=== PATIENT | female | born 1980 | race Hispanic/Latino ===

== ENCOUNTER → 2019-06-19 | Day surgery (SDC) | payer OTHER ==
[~2019-06-19] MED LIST: FENTANYL CITRATE/PF 100MCG/2 ML INJ ONE; GLUCAGON FOR INJ 1 MG VIAL ONE; LIDOCAINE HCL 2% LOCAL INJ 5 ML SDV VIAL INJ ONE; METOCLOPRAMIDE HCL 10 MG/2ML VIAL ONE; MIDAZOLAM HCL 2 MG/2 ML VIAL ONE; PROPOFOL IV EMULSION 10 MG/ML 20 ML VIAL ONE; SIMETHICONE 40 MG/0.6 ML BTL ONE
[2019-06-19 09:40] VITALS: BP 123/74
--- NOTE | 2019-06-19 12:50 | Operative Report ---
DATE OF PROCEDURE: 06/19/2019 SURGEON: Burke Luna MD PROCEDURE: EGD with esophageal dilatation and biopsies, and colonoscopy with polypectomy and biopsies. INDICATIONS FOR EGD: Dysphagia, upper abdominal pain, nausea. INDICATIONS FOR COLONOSCOPY: Lower abdominal pain, rectal spasms. MEDICATIONS: The patient was done under MAC, please see anesthesiologist's note. PROCEDURE IN DETAIL: With the patient in left lateral decubitus position, a flexible fiberoptic Olympus gastroscope was introduced into the esophagus under direct visualization without any difficulty. There was some patchy erythema noted in distal esophagus. A mild stricture at the GE junction was dilated to size 54-[place] Blake. The scope was then advanced with ease into the stomach. Mucosa overlying the antrum and the body revealed some patchy erythema and low-grade to moderate edema, and biopsies were obtained, sent to stain for H pylori. The pylorus was of normal contour and shape, was intubated with ease and the scope was advanced all the way to the second portion of the duodenum. Biopsies were obtained from the proximal second portion and duodenal bulb to rule out sprue. The scope was then withdrawn back into the stomach and retroflexion of mucosa overlying the fundus and cardia appeared to be within normal limits. The scope was then straightened out, it was subsequently withdrawn. The patient tolerated the procedure well. IMPRESSION: 1. Distal esophagitis, mild. 2. Esophageal stricture GE junction, dilated to size 54-[place] Blake. 3. Gastritis biopsied, biopsies sent to stain for H pylori. 4. Rule out sprue. PLAN: Follow up histology. Initiate Protonix 40 mg one p.o. q.a.m. a.c. The patient was then turned around after adequate lubrication of the anal canal, a flexible fiberoptic Olympus colonoscope was inserted into the rectum with ease and advanced all the way to the cecum. The mucosa overlying the cecum appeared to be within normal limits. There was a minute nodule noted in the ileocecal valve and that was biopsied. The terminal ileum was intubated. The mucosa overlying the visualized portion of the terminal ileum appeared to be within normal limits. The scope was then withdrawn back into the colon. It was then withdrawn slowly. A minute polyp was removed per hot biopsy forceps from the ascending colon. The transverse appeared to be within normal limits. Biopsies were obtained from the left colon. A minute polyp was hot biopsied in the sigmoid colon. There were some mild inflammatory changes noted in the rectum and biopsies were obtained. The scope was then retroflexed into the distal rectum. Small internal hemorrhoids were noted, none of which was actively bleeding. The scope was then straightened out, it was subsequently withdrawn. The patient tolerated the procedure well. IMPRESSION: 1. Minute nodule ileocecal valve, biopsied. 2. Ascending colon polyp, hot biopsied. 3. Sigmoid colon polyp, hot biopsied. 4. Proctitis, mild, biopsies obtained. 5. Internal hemorrhoids, none actively bleeding. PLAN: Followup histology. Initiate VSL #3 one p.o. b.i.d. Bentyl 20 mg one p.o. t.i.d. The patient might benefit from a followup colonoscopy in 5 years. Burke Luna MD [facility] [place] /[id number] cc: Enrique Trevizo DO
== END | disposition home or self-care (01) ==
LOC: OR 05:49
PROVIDERS: ATTEND Internal Medicine Gastroenterology
DX: K29.70 Gastritis, unspecified, without bleeding (principal); K63.5 Polyp of colon; K22.2 Esophageal obstruction; K20.9 Esophagitis, unspecified; K63.89 Other specified diseases of intestine; K62.89 Other specified diseases of anus and rectum; K59.4 Anal spasm; K64.4 Residual hemorrhoidal skin tags; K64.8 Other hemorrhoids; N20.0 Calculus of kidney; Z01.812 Encounter for preprocedural laboratory examination; Z11.59 Encounter for screening for other viral diseases; Z68.41 Body mass index [BMI] 40.0-44.9, adult
CPT/HCPCS: 43239; 43450; 45380; 45384; 81025; 87635; J1610; J2001; J2250; J2704; J2765; J3010; 45378

== ENCOUNTER → 2019-10-17 | Day surgery (SDC) | payer OTHER ==
[~2019-10-17] MED LIST changes: +BENTYL10 MG/1 ML PO; +CEFTRIAXONE SOD 1 GM/NS 50 ML 50 ML IV ONE; +DEXAMETHASONE SOD PHOS INJ 4 MG/ML VIAL ONE; -GLUCAGON FOR INJ 1 MG VIAL ONE; +IOPAMIDOL 300MG/ML 50ML INFUS..BTL IV ONE; -METOCLOPRAMIDE HCL 10 MG/2ML VIAL ONE; +ONDANSETRON HCL INJ 2MG/ML 2ML 2 MG/ML VIAL ONE; +PANTOPRAZOLE SO40 MG PO; +SEVOFLURANE INHAL SOLN 250 ML PEN BTL ONE; -SIMETHICONE 40 MG/0.6 ML BTL ONE; +VSL#3 CAPSULE1 EACH PO
[2019-10-17 07:50] VITALS: BP_DIAS 80
[2019-10-17 07:55] VITALS: BP_SYST 114
--- NOTE | 2019-10-20 21:12 | Operative Report ---
DATE OF PROCEDURE: 10/17/2019 SURGEON: Aki Felix MD PREOPERATIVE DIAGNOSES: Left ureteral calculi, left hydronephrosis, microscopic hematuria. POSTOPERATIVE DIAGNOSES: Left ureteral calculi, left hydronephrosis, microscopic hematuria with urethral strictures. PROCEDURES: 1. Cystourethroscopy with right ureter catheterization and right retrograde pyelogram (separate procedure for microscopic hematuria). 2. Left-sided ureteroscopy with dilation of ureteral stricture (entirely separate procedure for left ureteral stricture). 3. Cystourethroscopy with insertion of left indwelling stent (entirely separate procedure for diagnosis of left hydronephrosis). 4. Supervision of fluoroscopy for both ureteroscopy, dilation portions and stent placement. 5. Interpretation of retrograde pyelography. ANESTHESIA: General. ESTIMATED BLOOD LOSS: Minimal. COMPLICATIONS: None. INDICATIONS: Ms. Meza is a very pleasant 39-year-old female with a history of ureteral calculi, proximal hydronephrosis. She and I had a long discussion alternatives, risks, and benefits including nothing, shockwave lithotripsy, ureteroscopy, percutaneous surgery, or open surgery. She voiced understanding of the options, alternatives, risks, and benefits, and she elected to proceed. PROCEDURE IN DETAIL: After informed consent was obtained, the patient was taken to operative suite, placed supine on the operating table, and underwent general anesthesia by Anesthesia Service, placed in the dorsal lithotomy position. Sterilely prepped and draped in standard fashion for cystoscopy. A 21-Yakut cystoscope was inserted per urethra. Bilateral retrograde pyelogram was performed; the right was normal, the left revealed a proximal area of narrowing, proximal hydronephrosis, question UPJ. With moderate degree of difficulty requiring an angle-tipped Glidewire, access was made in the proximal ureter calyx. Attempts were made to dilate this is fail. Flexible ureteroscope was advanced to this, best seen photographic image #4 showing a very small stricture. At this time, utilizing a stent, we attempted to soft dilate urethral stricture. A 7 x 28 cm ureteral stent was deployed with a coil in the renal pelvis and a coil in the bladder. The patient's bladder was drained. She was awakened from anesthesia and transferred to the recovery room in excellent condition. Supervision of fluoroscopy and interpretation of retrograde pyelography: I was present for the entire procedure and supervised fluoroscopy. There was no radiologist present. Attention was turned to the left and right ureteral orifices, which were catheterized with an 8-Yakut cone-tipped catheter and retrograde fashion. Contrast was injected on the right side revealed delicate ureter and delicate pelvocaliceal systems; on the left side revealed a delicate distal ureter, question extrinsic compression versus filling defect in the UPJ on the left side, proximal hydronephrosis. Postoperative views on the left side revealed stents in adequate position. IMPRESSION: 1. Normal right retrograde pyelogram. 2. Left hydronephrosis, question left UPJ. 3. Left ureteral stent in adequate position. MD PANCHO Mendez/MODL /[id number] cc: Enrique Trevizo DO
== END | disposition home or self-care (01) ==
LOC: OR 05:17
PROVIDERS: ATTEND Urology
DX: N20.1 Calculus of ureter (principal); N13.30 Unspecified hydronephrosis; N13.5 Crossing vessel and stricture of ureter without hydronephrosis; N35.92 Unspecified urethral stricture, female; N18.9 Chronic kidney disease, unspecified; E66.01 Morbid (severe) obesity due to excess calories; I10 Essential (primary) hypertension; K29.70 Gastritis, unspecified, without bleeding; Z01.812 Encounter for preprocedural laboratory examination; Z11.59 Encounter for screening for other viral diseases; Z68.41 Body mass index [BMI] 40.0-44.9, adult; Z84.1 Family history of disorders of kidney and ureter
CPT/HCPCS: 52332; 52344; 74420; 81025; C1758 ×2; C1769; C2617; J0696; J1100; J2001; J2250; J2405; J2704; J3010; Q9967; U0002

== ENCOUNTER → 2019-11-14 | Day surgery (SDC) | payer OTHER ==
[2019-11-14 08:10] VITALS: BP 118/86
--- NOTE | 2019-11-14 13:47 | Operative Report ---
DATE OF PROCEDURE: 11/14/2019 SURGEON: Aki Felix MD PREOPERATIVE DIAGNOSES: 1. Indwelling left ureteral stent. 2. Ureteral stricture. POSTOPERATIVE DIAGNOSES: 1. Indwelling left ureteral stent. 2. Ureteral stricture. PROCEDURES: 1. Cystourethroscopy with complicated removal of left indwelling stent (entirely separate procedure for left indwelling ureteral stent). 2. Left-sided ureteroscopy (entirely separate procedure for diagnosis of ureteral stricture). 3. Supervision of fluoroscopy. 4. Interpretation of retrograde pyelography. ANESTHESIA: General. ESTIMATED BLOOD LOSS: Minimal. COMPLICATIONS: None. INDICATIONS FOR PROCEDURE: Ms. Meza is a 39-year-old female with a history of stent stricture. She and I had a long discussion about alternatives, risks, and benefits of doing nothing, stent removal, ureteroscopy, percutaneous surgery or open surgery. She voiced understanding of the options, alternatives, risks, and benefits, and she elected to proceed. PROCEDURE IN DETAIL: After informed consent was obtained, the patient was taken to the operative suite. She was placed supine on the operative table. She underwent general anesthesia by the Anesthesia Service and placed in dorsal lithotomy position, and sterilely prepped and draped for cystoscopy. A 21-Kinyarwanda cystoscope was inserted per urethra and normal urethra is noted. Stent was seen extending through the left ureteral orifice and grasped. Attempts were made to catheterize and failed secondary to encrustation. A guidewire was inserted alongside the stent and seen to coil at the level of the renal pelvis on the fluoroscopy. Flexible ureteroscope was advanced to the level of the renal pelvis. Several wide caliber strictures, status post dilation were seen. The calyceal system was mapped. The scope was withdrawn. Safety wire was removed. The bladder was drained. The patient was awakened from anesthesia and transported to recovery room in excellent condition with no untoward effects noted. Supervision of fluoroscopy and interpretation of retrograde pyelography: I was present for the entire procedure and supervised fluoroscopy. There was no radiologist present. Attention turned to the left ureteral orifice, which was catheterized with ureteroscope. Retrograde pyelogram was performed revealing a delicate ureter, delicate collecting system, and interim removal of stent. Aki Felix MD ES/MODL /[id number]
== END | disposition home or self-care (01) ==
LOC: OR 05:25
PROVIDERS: ATTEND Urology
DX: N13.5 Crossing vessel and stricture of ureter without hydronephrosis (principal); I12.9 Hypertensive chronic kidney disease with stage 1 through stage 4 chronic kidney disease, or unspecified chronic kidney disease; N18.2 Chronic kidney disease, stage 2 (mild); N13.30 Unspecified hydronephrosis; Z46.6 Encounter for fitting and adjustment of urinary device; E66.01 Morbid (severe) obesity due to excess calories; K21.9 Gastro-esophageal reflux disease without esophagitis; Z01.812 Encounter for preprocedural laboratory examination; Z11.59 Encounter for screening for other viral diseases; Z68.41 Body mass index [BMI] 40.0-44.9, adult
CPT/HCPCS: 52351; 74420; 81025; 87086; C1769; J0696; J1100; J2001; J2250; J2405; J2704; J3010; Q9967; U0002